=== PATIENT | female | born 1985 | race Caucasian/White ===

== ENCOUNTER 2023-06-11 22:15 | Emergency (ER) | payer OTHER ==
[~2023-06-11] VITALS: Ht 170.2 cm; Wt 144.2 kg
[~2023-06-11 22:15] MED LIST: ACET-10509 PO; OXYC1TAB PO; PREN-385 PO
[2023-06-11 22:38] VITALS: BP 168/94; PULSE 91; RESP 16; TEMP 97.7; O2SAT 98
== END 2023-06-12 01:40 | disposition home or self-care (01) ==
LOC: MED 22:15
DX: J06.9 Acute upper respiratory infection, unspecified (principal); B34.9 Viral infection, unspecified; J02.9 Acute pharyngitis, unspecified; Z79.899 Other long term (current) drug therapy
CPT/HCPCS: 99281